=== PATIENT | female | born 1965 | race Two or more races ===

== ENCOUNTER 2023-06-27 17:58 | Emergency (ER) | payer OTHER ==
[~2023-06-27] VITALS: Ht 167.6 cm; Wt 81.7 kg
[2023-06-27] MEDS ORDERED: PAROXETINE HCL10 MG PO (18:37)
[2023-06-27] MEDS ORDERED: VENTOLIN HFA18 GM INH (18:38)
[2023-06-27] MEDS ORDERED: VITAMIN B-1250 MC1 PO (18:38)
[2023-06-27] MEDS ORDERED: IMVEXXY10 MCG VG (18:39)
[2023-06-27] MEDS ORDERED: CYCLOBENZAPRINE10 MG PO (20:43)
[2023-06-27] MEDS ORDERED: MELOXICAM15 MG PO (20:43)
[2023-06-27 21:57] VITALS: BP 154/111
== END 2023-06-27 21:58 | disposition home or self-care (01) ==
LOC: ED 17:58
DX: S16.1XXA Strain of muscle, fascia and tendon at neck level, initial encounter (principal); R07.89 Other chest pain; Z88.8 Allergy status to other drugs, medicaments and biological substances; Z79.899 Other long term (current) drug therapy; Z79.51 Long term (current) use of inhaled steroids; V89.2XXA Person injured in unspecified motor-vehicle accident, traffic, initial encounter
CPT/HCPCS: 71046; 72125; J1885; J3360